=== PATIENT | male | born 1995 | race African-American/Black ===

== ENCOUNTER 2019-04-23 07:50 | Emergency (ER) | payer SELFPAY ==
[~2019-04-23] VITALS: Ht 172.7 cm; Wt 76.0 kg
[2019-04-23] MEDS: OLANZAPINE 10 MG/VIAL IM ONE (08:23)
[2019-04-23] MEDS: LORAZEPAM 2MG/ML CPJ IM ONE (08:23)
[2019-04-23 08:51] LABS: BASOPHILS % 0.4 % (0.0-2.0); EOSINOPHILS % 0.5 % (0.0-5.0); HEMATOCRIT. 47.6 % (42.0-52.0); HEMOGLOBIN. 16.1 g/dL (14.0-18.0); LYMPHOCYTES % 19.3 % (20.0-50.0); MEAN CORPUSCULAR VOLUME 94.9 fL (80.0-94.0); MEAN PLATELET VOLUME 8.9 fl (7.4-10.4); MONOCYTES % 7.6 % (2.0-8.0); NEUTROPHILS % 72.2 % (40.0-76.0); PLATELET 314 x1000/uL (130-400); RED BLOOD CELL COUNT 5.02 mill/uL (4.7-6.1); RED CELL DISTRIBUTION WIDTH 13.3 % (11.6-14.6)
[2019-04-23 08:56] LABS: CHLORIDE 103 mEq/L (98-107)
[2019-04-23 09:00] LABS: ETHANOL BLOOD < 10 mg/dL
[2019-04-23 10:30] VITALS: BP 155/74
[2019-04-23 10:37] LABS: CLARITY URINE CLEAR (CLEAR); COLOR URINE YELLOW (YELLOW); KETONES URINE NEGATIVE (NEGATIVE); LEUKOCYTE ESTERASE URINE NEGATIVE (NEGATIVE); NITRITE URINE NEGATIVE (NEGATIVE); OCCULT BLOOD URINE NEGATIVE (NEGATIVE); PH URINE 5.5 (4.5-8.0); PROTEIN URINE NEGATIVE (NEGATIVE); SPECIFIC GRAVITY URINE 1.013 (1.005-1.030); UROBILINOGEN URINE 0.2 E.U./dL (0.2-1.0)
[2019-04-23 11:56] LABS: *AMPHETAMINES SCREEN URINE NEGATIVE (NEGATIVE); *BARBITURATES SCREEN URINE NEGATIVE (NEGATIVE); *BENZODIAZEPINES SCREEN URINE NEGATIVE (NEGATIVE); *COCAINE SCREEN URINE NEGATIVE (NEGATIVE)
[2019-04-23 11:57] LABS: CANNABINOID URINE SCREEN NEGATIVE (NEGATIVE); METHADONE URINE SCREEN NEGATIVE (NEGATIVE); OPIATES URINE SCREEN NEGATIVE (NEGATIVE); PHENCYCLIDINE URINE SCREEN NEGATIVE (NEGATIVE)
== END 2019-04-23 10:45 | disposition home or self-care (01) ==
LOC: ER 07:50 → EDBD 07:50 → ER 10:45
DX: R62.50 Unspecified lack of expected normal physiological development in childhood (principal); I10 Essential (primary) hypertension
CPT/HCPCS: 36415; 80053; 80305; 80307; 80320; 80329; 81003; 82962; 85025; 96372; 99283; J2060; J3490; G0480